=== PATIENT | female | born 1945 | race Caucasian/White ===

== ENCOUNTER → 2024-09-24 | Outpatient (CLI) | payer MEDICARE, SELFPAY ==
--- NOTE | 2024-09-24 10:28 | RAD_ITS ---
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 Scattered hand osteoarthritis most pronounced interphalangeal joints, and 1st digit interphalangeal joint in particular as well as the 2nd digit proximal and distal interphalangeal joints.. No acute bone or soft tissue pathology. RAD/Hand Min 3 Views IMPRESSION: Wrist and hand osteoarthritis. Reading [facility]
--- NOTE | 2024-09-24 10:28 | RAD_ITS ---
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 Scattered hand osteoarthritis mainly interphalangeal joint space narrowing. No acute bone or soft tissue pathology. RAD/Hand Min 3 Views IMPRESSION: There is some hand osteoarthritis, most pronounced 1st CMC joint. Reading [facility]
[2024-09-24 12:30] LABS: Hematocrit 43.5 % (37-47); Hemoglobin 14.6 g/dL (12.0-15.0); Immature Granulocytes Count 0.020 X10^3/uL (0.0-0.0); Mean Corp Hgb Conc 33.6 g/dL (32-36); Mean Corpuscular Volume 91.6 fL (81-99); Mean Platelet Vol. 11.6 fl (6.2-12.0); NRBC Flagged by Analyzer 0 % (0-5); Platelet Count 221 K/mm3 (150-450); RBC Distribution Width CV 12.3 % (11.6-14.6); RBC Distribution Width SD 41.0 fl (35.1-43.9); Red Blood Count 4.75 M/mm3 (4.2-5.4); White Blood Count 6.8 K/mm3 (4.4-11.0)
[2024-09-24 13:41] LABS: AST(SGOT) 22 U/L (<=31); Alanine Aminotransfer ALT/SGPT 19 U/L (<=34); Albumin, Serum 4.5 g/dL (3.4-4.8); Alkaline Phosphatase 70 U/L (35-104); Anion Gap 13 (5-15); BUN 21 mg/dL (4-19); BUN/Creat Ratio 28.2 RATIO (10-20); Calcium,Total 9.8 mg/dL (7.6-11.0); Carbon Dioxide 25.4 mmol/L (21.0-32.0); Chloride 104 mmol/L (98-108); Globulin 2.5 g/dL (2.2-4.2); Glucose 93 mg/dL (70-99); Hepatitis B Surface Antigen Nonreactive (Nonreactive); Hepatitis C Antibody Nonreactive (Nonreactive); Potassium 4.5 mmol/L (3.3-5.1)
[2024-09-24 13:43] LABS: CRP < 3.00 mg/L (0.0-3.0)
[2024-09-25 14:08] LABS: ANTINUCLEAR ANTIBODIES DIRECT Negative (Negative)
== END | disposition home or self-care (01) ==
LOC: MTLAB 10:03
PROVIDERS: PCP Student in an Organized Health Care Education/Training Program; Referring Provider Internal Medicine Rheumatology; Visit Provider Internal Medicine Rheumatology
DX: M06.4 Inflammatory polyarthropathy (principal); M19.041 Primary osteoarthritis, right hand
CPT/HCPCS: 36415; 73130; 80053; 85025; 85652; 86038; 86140; 86200; 86431; 86706; 86803; 87340